=== PATIENT | female | born 1985 | race Caucasian/White ===

== ENCOUNTER 2017-03-24 15:37 | Emergency (ER) | payer MEDICAID ==
--- NOTE | 2017-04-11 15:51 | ER ---
ADMIT: 03/24/2017 RM/LOC: ER [facility] MR#: [id number] [id number] [id number] HERMILO METCALF [address] [place] [address] Emergency Room Report SEX: F AGE: 31 : 1985 DATE: 03/24/2017 This 31-year-old female, comes in with a complaint of a headache times the last 8 days. She has frequent migraine. See T-sheet for remainder of history and physical. The patient diagnosed with headache. She is given Toradol and diphenhydramine with rapid resolution of her headaches. She is instructed to follow up as needed with her primary doctor. Lionel Jones MD/ destiney JOB #: [id number] CC: Lionel Jones MD, Attending Physician Suma Mackey, Family Physician
== END 2017-03-24 17:08 | disposition home or self-care (01) ==
LOC: ER 15:37
DX: R51 Headache (principal)